=== PATIENT | male | born 1965 | race Caucasian/White ===

== ENCOUNTER 2018-12-29 03:10 | Emergency (ER) | payer OTHER ==
[2018-12-29] MEDS: CYCLOBENZAPRINE 10 MG TAB PO (03:47)
[2018-12-29] MEDS: KETOROLAC 30 MG INJ IM (03:48)
== END 2018-12-29 04:58 | disposition home or self-care (01) ==
LOC: FTE 03:10
DX: S60.011A Contusion of right thumb without damage to nail, initial encounter (principal); S60.221A Contusion of right hand, initial encounter; I10 Essential (primary) hypertension; F17.210 Nicotine dependence, cigarettes, uncomplicated; X58.XXXA Exposure to other specified factors, initial encounter; Y92.9 Unspecified place or not applicable
CPT/HCPCS: 73130; 73130-RT; 99283-25